=== PATIENT | male | born 1970 | race Caucasian/White ===

== ENCOUNTER 2019-04-29 09:20 | Day surgery (SDC) | payer OTHER, SELFPAY ==
--- NOTE | 2019-04-29 | PATH_ITS ---
[facility] Accession Number: [id number] . 01 Material submitted: . colon - TRANSVERSE COLON POLYP BIOPSY . 02 Diagnosis: Transverse Colon, Polyp, Biopsy: Tubular adenoma. [facility]/04/30/2019 . 02 Electronically signed: . Martha Nino MD, Pathologist NPI- [id number] . 01 Gross description: . TRANSVERSE COLON POLYP BIOPSY: Received in formalin is 1 fragment(s) of villarreal, soft tissue measuring 0.5 x 0.3 x 0.2 cm which is entirely submitted and submitted entirely in 1 cassette(s) /DMC /DMC . 02 Pathologist provided ICD-10: D12.3 . 02 CPT . 130697 Performed at: [address] [facility] [address] [id number] MD Jose J Clancy MD Phone: [phone] Performed at: 02 [facility] [address] [place], [place] [id number] MD Martha Nino MD Phone: [phone]
[2019-04-29 09:49] VITALS: BP 152/93; PULSE 75; RESP 15; TEMP 36.8; O2SAT 98; BMI 27.7
[2019-04-29] MEDS: SODIUM CHLORIDE 0.9% 1,000 ML 42 ML IV (09:49)
--- NOTE | 2019-04-29 10:58 | PM.HP.1 ---
History of Present Illness Date Patient Seen: 04/29/19 Time Patient Seen: 10:58 Chief complaint: [id number] Narrative: Constipation and colorectal cancer screening Patient History Medical History (Updated 04/29/19 @ 10:01 by Eri Cerda RN) Abdominal pain (Acute) Change in bowel habit (Acute) Constipation (Acute) Hyperlipidemia (Acute) Hypertension (Acute) Obstructive sleep apnea (Acute) Tobacco abuse (Acute) Social History household members: spouse and children Family & Social History Social History: household members spouse,children Meds Home Medications Medication Instructions Recorded Confirmed Type losartan 50 mg PO DAILY 04/29/19 04/29/19 History polyethylene glycol 3350 [Miralax] 17 g PO DAILY PRN 04/29/19 04/29/19 History Allergies Allergy/AdvReac Type Severity Reaction Status Date / Time latex Allergy Intermediate Rash Verified 04/29/19 09:47 VANESSA Inhibitors AdvReac Mild Cough Verified 04/29/19 10:07 Exam Vital Signs (past 8 hours): - 04/29/19 09:49 Temperature 98.3 F Pulse Rate 75 Respiratory Rate 15 Blood Pressure 152/93 H Pulse Oximetry 98 Oxygen Delivery Method Room Air Narrative Exam Narrative: Oropharynx free of lesions Chest clear to auscultation and percussion Cardiac exam reveals no S3 or murmur Assessment & Plan Assessment & Plan narrative: Need for colorectal cancer screening. Risks, benefits, alternatives have been explained. Further recommendations will follow the results of the study. He will also be given instructions on a bowel regimen after this procedure.
--- NOTE | 2019-04-29 10:59 | PM.HP.1 ---
History of Present Illness Chief complaint: [id number] Narrative: Constipation and colorectal cancer screening Patient History Medical History (Updated 04/29/19 @ 10:01 by Eri Cerda RN) Abdominal pain (Acute) Change in bowel habit (Acute) Constipation (Acute) Hyperlipidemia (Acute) Hypertension (Acute) Obstructive sleep apnea (Acute) Tobacco abuse (Acute) Social History household members: spouse and children Family & Social History Social History: household members spouse,children Meds Home Medications Medication Instructions Recorded Confirmed Type losartan 50 mg PO DAILY 04/29/19 04/29/19 History polyethylene glycol 3350 [Miralax] 17 g PO DAILY PRN 04/29/19 04/29/19 History Allergies Allergy/AdvReac Type Severity Reaction Status Date / Time latex Allergy Intermediate Rash Verified 04/29/19 09:47 VANESSA Inhibitors AdvReac Mild Cough Verified 04/29/19 10:07 Exam Vital Signs (past 8 hours): - 04/29/19 09:49 Temperature 98.3 F Pulse Rate 75 Respiratory Rate 15 Blood Pressure 152/93 H Pulse Oximetry 98 Oxygen Delivery Method Room Air
--- NOTE | 2019-04-29 11:00 | PM.OP.ENDO ---
Operative Date/Time/Diagnoses Date of procedure: 04/29/19 Time of procedure: 11:00 Pre-op diagnosis: See indication and findings Procedure & Clinicians Study performed: Colonoscopy Same procedure as scheduled: Yes Indications: Constipation and need for colorectal cancer screening Surgeon: Kezia Isaac Procedure Notes Procedure in detail: After informed consent was obtained the patient was placed in left lateral decubitus position. The video colonoscope was introduced the rectum slowly advanced to the cecum. On slow withdrawal mucosa was carefully examined. The scope was removed. The patient tolerated the procedure well. Blood loss none Complications none Sedation Total sedation time 12 minutes Fentanyl 100 mg versed 7 mg IV titration Findings 1. pancolonic diverticulosis, moderate 2. 4 mm polyp in the transverse colon Jumbo biopsy removed completely 3. Otherwise negative colonoscopy cecum with a surprisingly excellent preparation Patient will stick with his current regimen of 1-2 doses of MiraLax daily going up to 4 doses as need be. We will see about trying to get him some Linzess through his pharmacy.
[2019-04-29] MEDS: MIDAZOLAM 5 MG/5 ML VIAL IV (11:34)
[2019-04-29] MEDS: fentaNYL 250 MCG/5 ML INJ IV (11:35)
[2019-04-29 11:47] VITALS: BP 126/82; PULSE 71; RESP 19; TEMP 37.2; O2SAT 94
[2019-04-29 11:52] VITALS: BP 135/88; PULSE 67; RESP 16; O2SAT 96
[2019-04-29 11:57] VITALS: BP 123/82; PULSE 68; RESP 16; O2SAT 94
== END 2019-04-29 12:28 ==
PROVIDERS: PCP Physician Assistant; Visit Provider Internal Medicine Gastroenterology
PROC: 0DJD8ZZ Inspection of Lower Intestinal Tract, Via Natural or Artificial Opening Endoscopic (ICD-10-PCS; CPT 45378; principal; 2019-04-29 11:00)
DX: K59.00 Constipation, unspecified (principal); G47.33 Obstructive sleep apnea (adult) (pediatric); R10.9 Unspecified abdominal pain; R19.4 Change in bowel habit; E78.5 Hyperlipidemia, unspecified; I10 Essential (primary) hypertension; Z72.0 Tobacco use; K57.30 Diverticulosis of large intestine without perforation or abscess without bleeding; D12.3 Benign neoplasm of transverse colon
CPT/HCPCS: 45380; J2250; J3010